=== PATIENT | male | born 1990 | race Caucasian/White ===

== ENCOUNTER → 2017-10-12 | Outpatient (CLI) | payer OTHER ==
--- NOTE | 2017-10-12 17:44 | US ---
EXAMINATION TYPE: US abdomen complete DATE OF EXAM: 10/12/2017 COMPARISON: NONE CLINICAL HISTORY: 27-year-old male R10.33 Periumbilical Abd Pain. Abdominal pain for a few months, el evated bilirubin TECHNIQUE: Multiple sonographic images of the abdomen are obtained. 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 The visualized neck and body show no gross abnormality. Liver: wnl Gallbladder: wnl Evidence for sonographic Conner's sign: no CBD: dilated Spleen: Upper limits of normal in size Right Kidney: No hydronephrosis Left Kidney: No hydronephrosis Upper IVC: wnl Abd Aorta: wnl IMPRESSION: 1. Dilated bile duct at 8 mm. Correlate with alkaline phosphatase and bilirubin levels to exclude marilu iary obstruction. MRCP, ERCP, or contrast-enhanced CT as indicated. 2. No cholelithiasis or gallbladder distention seen.
== END | disposition home or self-care (01) ==
LOC: RADUSWWP 16:41
PROVIDERS: ATTEND Family Medicine
DX: K83.8 Other specified diseases of biliary tract (principal); R10.33 Periumbilical pain
CPT/HCPCS: 76700

== ENCOUNTER → 2017-12-15 | Outpatient (CLI) | payer OTHER ==
--- NOTE | 2017-12-16 02:50 | MR ---
EXAMINATION TYPE: MR MRCP DATE OF EXAM: 12/15/2017 COMPARISON: None HISTORY: Abdominal pain Standard multiplanar, multisequence MRI departmental protocol Multiplanar, multisequence images of the abdomen were acquired. FINDINGS: Liver shows no focal defect. Spleen and pancreas appear normal. The gallbladder appears nor mal. There is no gallbladder wall thickening. There is no adrenal mass. Kidneys have normal size and contour. There is no hydronephrosis. There is no sign of retroperitoneal adenopathy. There is no sign of ascites or pleural effusion. Common bile d uct measures 5 mm. The intrahepatic bile ducts are not dilated. The pancreatic duct is not dilated. T he remainder of the exam is unremarkable. IMPRESSION: Normal exam. No evidence of gallstones or dilated ducts. Normal liver spleen and pancreas.
== END | disposition home or self-care (01) ==
LOC: RADMRIMAIN 17:36
PROVIDERS: ATTEND Internal Medicine Gastroenterology
DX: R93.2 Abnormal findings on diagnostic imaging of liver and biliary tract (principal)
CPT/HCPCS: 74181